=== PATIENT | female | born 1950 | race Caucasian/White ===

== ENCOUNTER 2018-01-02 05:30 | Day surgery (SDC) | payer MEDICARE, BC ==
[2018-01-02] MEDS ORDERED: Enalapril 5 MG Tab PO ONE (05:57)
[2018-01-02] MEDS ORDERED: Acetaminophen 500 MG Tab PO ONE (05:58)
[2018-01-02] MEDS ORDERED: Dextrose 5%-Lactated Ringers 1,000 ML IV SCH (06:00)
[2018-01-02] MEDS ORDERED: Lidocaine 1% with EPINEPHrine 1:100,000 50 ML MDV ONE (06:53)
[2018-01-02] MEDS ORDERED: Midazolam 1 MG/ML 2 ML SDV ONE (06:54)
[2018-01-02] MEDS ORDERED: fentaNYL 100 MCG/2 ML SDV ONE (06:54)
[2018-01-02] MEDS ORDERED: Propofol 200 MG/20 ML SDV ONE (06:54)
[2018-01-02] MEDS ORDERED: Lidocaine 0.5% 50 ML SDV ONE (06:55)
[2018-01-02] MEDS ORDERED: ceFAZolin 2 GM in Sodium Chloride 0.9% 50 ML IV ONE (07:30)
[2018-01-02] MEDS ORDERED: Ketorolac 60 MG/2 ML SDV ONE (08:41)
[2018-01-02 09:23] VITALS: BP 112/71
--- NOTE | 2018-01-09 07:19 | OR ---
DATE OF PROCEDURE: 01/02/2018 PREOPERATIVE DIAGNOSIS: Right carpal tunnel syndrome. POSTOPERATIVE DIAGNOSIS: Right carpal tunnel syndrome. PROCEDURE: Right carpal tunnel release ([id number]). ANESTHESIA: IV block plus sedation. INDICATION FOR PROCEDURE: This is a 67-year-old female who is presenting with bilateral carpal tunnel syndrome, worse on the right, and the plan is to proceed with a right carpal tunnel release. Potential risks including bleeding, infection, injury to median nerve and/or its branches, possible incomplete relief of symptoms were all reviewed, and the patient wishes to proceed. DETAILS OF PROCEDURE: The patient was taken to the operating room and placed in a supine position. IV sedation was administered, after which an IV block was placed affecting the right forearm and hand. Those areas were then prepped and draped. A standard carpal tunnel incision was made and carried down through the skin and subcutaneous tissue. The transverse carpal ligament was then divided from the area of the wrist proximally onto the palm of the hand and then somewhat proximal to the wrist, to provide complete decompression of the median nerve in that region. The nerve otherwise was intact. An ulnar orientation with the underlying median nerve was maintained during the course of revision of transverse carpal ligament, which was quite thick and did retract under considerable tension. At that point, no further problems noted. The subcutaneous tissue was approximated with some 4-0 Vicryl stitch and the skin with a 5-0 Prolene stitch. Dressing was applied. The patient was taken to the recovery room in satisfactory condition. Jostin Castrejon MD /[id number]
== END 2018-01-02 09:37 | disposition home or self-care (01) ==
LOC: JP.SDS 05:30
PROVIDERS: ATTEND Surgery
DX: G56.03 Carpal tunnel syndrome, bilateral upper limbs (principal); I10 Essential (primary) hypertension; E78.5 Hyperlipidemia, unspecified; F41.9 Anxiety disorder, unspecified; Z88.8 Allergy status to other drugs, medicaments and biological substances
CPT/HCPCS: 64721; A9270; J0690; J1885; J2250; J2704; J3010; J7042; J7050

== ENCOUNTER 2020-10-15 20:49 | Emergency (ER) | payer MEDICARE, BC ==
[2020-10-15 20:53] VITALS: BP 127/80; PULSE 71
--- NOTE | 2020-10-15 21:47 | EDM.PDOC ---
ED HPI GENERAL MEDICAL PROBLEM - General Chief Complaint: Head Injury Stated Complaint: MEDICAL VIA [facility] Time Seen by Provider: 10/15/20 21:35 Source of Information: Reports: Patient, EMS, Family () History Limitations: Reports: Intoxication - History of Present Illness INITIAL COMMENTS - FREE TEXT/NARRATIVE: Dinah is a 70-year-old female presenting to the ED via [facility] for evaluation of head injury while intoxicated. The patient reportedly has not been making much sense according to her since earlier today after she mowed the lawn. Apparently during this event, and the one more broke down in that warren and into the garage. He states that she was not making a lot of sense with talking. She is normally a morning person and she ate a [place] this morning and had 4 cups of coffee. After that she started to mow the lawn. Later in the afternoon they were entertaining friends and she drank 4 vodka and water drinks. He said that she has steadily declined her mentation since then and at times acts confused and is repeating herself. She went to lay down and after being in bed for about 30 minutes he heard a thud to go in and find her laying on the floor. They asked for the help of a neighbor who is a mission support specialist to assist them getting her off the floor and he recommended that she be brought in for evaluation. She denies any symptoms including headache, neck pain or back pain. She is intoxicated but denies any heavy alcohol use. According to the there was nothing unusual about their intake today and her confusion seemed to start before she started drinking this morning. She denies any fever, chills, nausea or vomiting, headache or body aches, abdominal or back pain. - Related Data Allergies Allergy/AdvReac Type Severity Reaction Status Date / Time ezetimibe [From Vytorin] AdvReac Leg Cramps Verified 10/15/20 21:10 simvastatin [From Vytorin] AdvReac Leg Cramps Verified 10/15/20 21:10 Home Meds: Home Meds Aspirin [Low Dose Aspirin EC] 81 mg PO DAILY 05/21/14 [History] Citalopram Hydrobromide [Celexa] 10 mg PO DAILY 05/21/14 [History] Enalapril Maleate [Vasotec] 20 mg PO DAILY 12/31/14 [History] atorvaSTATin [Lipitor] 40 mg PO BEDTIME 05/21/14 [History] Past Medical History HEENT History: Reports: Impaired Vision Cardiovascular History: Reports: Heart Murmur, High Cholesterol, Hypertension Gastrointestinal History: Reports: GERD, Hiatal Hernia RESIDENT CARE DIRECTOR History: Reports: Other RESIDENT CARE DIRECTOR History: [place] Neurological History: Reports: Concussion Psychiatric History: Reports: Anxiety, Depression, Panic Attack Endocrine/Metabolic History: Reports: Obesity/BMI 30+ - Infectious Disease History Infectious Disease History: Reports: Measles, Novel Coronavirus - Past Surgical History HEENT Surgical History: Reports: Tonsillectomy Cardiovascular Surgical History: Reports: None GI Surgical History: Reports: Appendectomy, Colonoscopy, EGD, Justin Fundoplication Female Surgical History: Reports: Tubal Ligation Endocrine Surgical History: Reports: None Musculoskeletal Surgical History: Reports: Carpal Tunnel Social & Family History - Tobacco Use Tobacco Use Status *Q: Never Tobacco User - Caffeine Use Caffeine Use: Reports: Coffee Caffeine Use Comment: 2-3 cups daily - Alcohol Use Date of Last Drink: 10/15/20 ED ROS GENERAL - Review of Systems Review Of Systems: See Below Constitutional: Reports: No Symptoms HEENT: Reports: No Symptoms Respiratory: Reports: No Symptoms Cardiovascular: Reports: No Symptoms Endocrine: Reports: No Symptoms GI/Abdominal: Reports: No Symptoms : Reports: No Symptoms Musculoskeletal: Reports: No Symptoms Skin: Reports: No Symptoms Neurological: Reports: Confusion Psychiatric: Reports: No Symptoms Hematologic/Lymphatic: Reports: No Symptoms Immunologic: Reports: No Symptoms ED EXAM, HEAD INJURY - Physical Exam Exam: See Below Exam Limited By: Intoxication General Appearance: Alert, No Apparent Distress, Anxious Head: Normocephalic. No: Scalp Swelling, Scalp Abrasions, Scalp Hematoma, Facial Ecchymosis, Facial Swelling, Facial Tenderness Nexus Criteria: Evidence of Intoxication, Altered Level of Consciousness Eyes: Bilateral Eye: EOMI, PERRL Nose: Normal Inspection, Normal Mucousa Throat/Mouth: Normal Inspection, Normal Lips, Normal Teeth, Normal Oropharynx, Normal Voice, No Airway Compromise Neck: Non-Tender, Full Range of Motion Respiratory: No Respiratory Distress, Lungs Clear, Normal Breath Sounds Cardiovascular: Normal Peripheral Pulses, Regular Rate, Rhythm, No Murmur GI/Abdominal Exam: Normal Bowel Sounds, Soft, Non-Tender Back Exam: Normal Inspection Extremities: Normal Inspection, Normal Range of Motion Neurologic: silo filler II-XII nml As Tested, No Motor/Sensory Deficits, Alert, Normal Mood/Affect, Oriented x 3, Other (She does appear to have some mild perseveration and confusion but is oriented x3) Skin: Normal Color, Warm/Dry - [place] Coma Score Best Eye Response (Rosette): (4) Open Spontaneously Best Verbal Response ([place]): (4) Confused Conversation Best Motor Response ([place]): (6) Obeys Commands [place] Total: 14 Course - Vital Signs Last Recorded V/S: Last Vital Signs Temp 36.6 C 10/15/20 21:14 Pulse 71 10/15/20 21:14 Resp 16 10/15/20 21:14 BP 127/80 10/15/20 21:14 Pulse Ox 95 10/15/20 21:14 - Orders/Labs/Meds Orders: Active Orders 24 hr Category Date Time Status UA W/MICROSCOPIC [URIN] Stat Lab 10/15/20 21:42 Received Labs: Laboratory Tests 10/15/20 10/15/20 10/15/20 Range/Units 21:13 21:13 21:13 WBC 7.9 (4.5-11.0) K/uL RBC 4.65 (3.30-5.50) M/uL Hgb 14.1 (12.0-15.0) g/dL Hct 42.2 (36.0-48.0) % MCV 91 (80-98) fL MCH 30 (27-31) pg MCHC 33 (32-36) % Plt Count 243 (150-400) K/uL Neut % (Auto) 61.1 (36-66) % Lymph % (Auto) 29.5 (24-44) % Miller % (Auto) 7.1 H (2-6) % Eos % (Auto) 1.3 L (2-4) % Baso % (Auto) 1.0 (0-1) % PT 10.0 (9.5-12.0) sec INR 0.92 (0.80-1.20) APTT 23.9 L (27.0-36.0) sec Sodium 140 (140-148) mmol/L Potassium 3.6 (3.6-5.2) mmol/L Chloride 102 (100-108) mmol/L Carbon Dioxide 27 (21-32) mmol/L Anion Gap 11.3 (5.0-14.0) mmol/L BUN 16 (7-18) mg/dL Creatinine 0.7 (0.6-1.0) mg/dL Est Cr Clr Drug Dosing 72.01 mL/min Estimated GFR (MDRD) > 60 (>60) Glucose 125 H (74-106) mg/dL Calcium 8.7 (8.5-10.1) mg/dL Total Bilirubin 0.3 (0.2-1.0) mg/dL AST 24 (15-37) U/L ALT 35 (12-78) U/L Alkaline Phosphatase 120 H (46-116) U/L Total Protein 7.2 (6.4-8.2) g/dL Albumin 3.8 (3.4-5.0) g/dL Globulin 3.4 (2.3-3.5) g/dL Albumin/Globulin Ratio 1.1 L (1.2-2.2) Ethyl Alcohol mg/dL 10/15/20 Range/Units 21:13 WBC (4.5-11.0) K/uL RBC (3.30-5.50) M/uL Hgb (12.0-15.0) g/dL Hct (36.0-48.0) % MCV (80-98) fL MCH (27-31) pg MCHC (32-36) % Plt Count (150-400) K/uL Neut % (Auto) (36-66) % Lymph % (Auto) (24-44) % Miller % (Auto) (2-6) % Eos % (Auto) (2-4) % Baso % (Auto) (0-1) % PT (9.5-12.0) sec INR (0.80-1.20) APTT (27.0-36.0) sec Sodium (140-148) mmol/L Potassium (3.6-5.2) mmol/L Chloride (100-108) mmol/L Carbon Dioxide (21-32) mmol/L Anion Gap (5.0-14.0) mmol/L BUN (7-18) mg/dL Creatinine (0.6-1.0) mg/dL Est Cr Clr Drug Dosing mL/min Estimated GFR (MDRD) (>60) Glucose (74-106) mg/dL Calcium (8.5-10.1) mg/dL Total Bilirubin (0.2-1.0) mg/dL AST (15-37) U/L ALT (12-78) U/L Alkaline Phosphatase (46-116) U/L Total Protein (6.4-8.2) g/dL Albumin (3.4-5.0) g/dL Globulin (2.3-3.5) g/dL Albumin/Globulin Ratio (1.2-2.2) Ethyl Alcohol 288 mg/dL - Radiology Interpretation Free Text/Narrative:: I reviewed the report on the CT of the head as well as reviewed the images myself. There is no evidence for any acute intracranial abnormalities including hemorrhage, mass, or midline shift. There is no evidence for trauma to the skull or scalp hematoma. There is no evidence for an acute stroke. - Re-Assessments/Exams Free Text/Narrative Re-Assessment/Exam: 10/15/20 22:20 I reviewed the patient's labs showing a leukocyte count of 7.9 with a hemoglobin of 14.1 and hematocrit of 42.2. Patient's platelet count is 243,000. Her comprehensive metabolic panel was unremarkable with a sodium of 140, potassium 3.6, chloride of 102, bicarbonate of 27, BUN of 16 and a creatinine of 0.7 with a glucose of 125. Her PT and PTT are both normal. Her ethanol level is 288. Urinalysis shows no acute evidence for infection. CT of the brain shows no acute intracranial abnormalities including hemorrhage, mass, or midline shift. There is no evidence for an acute stroke. There is no evidence for any cranial abnormalities or hematoma formation on the scalp. It is likely that the confusion is simply due to intoxication. We will have the patient go home and rest and if still confused in the morning we can reassess if needed. Departure - Departure Time of Disposition: 22:22 Disposition: Home, Self-Care 01 Clinical Impression: Confusion, Fall from bed, initial encounter Alcohol intoxication Qualifiers: Complication of substance-induced condition: uncomplicated Qualified Code(s): F10.920 - Alcohol use, unspecified with intoxication, uncomplicated - Discharge Information Instructions: Alcohol Intoxication, [id number], Confusion Referrals: PCP,None [Primary Care Provider] - Forms: ED Department Discharge Care Plan Goals: Your work-up today has shown that the only significant abnormality was that you are intoxicated with a blood alcohol of 288 which is 0.288 or leg 4 times the legal limit. All your other lab work is unremarkable. Your CT scan of the brain did not show any significant abnormalities. There was no evidence for stroke. I recommend going home and sleeping and if you are still having confusion in the morning we would be happy to see you back and reassess but at this time I do not see any worrisome findings to contribute to your confusion. Sepsis Event Note (ED) - Evaluation Sepsis Screening Result: No Definite Risk - Focused Exam Vital Signs: Vital Signs Temp Pulse Resp BP Pulse Ox 10/15/20 21:14 36.6 C 71 16 127/80 95 10/15/20 20:52 36.6 C 71 16 127/80 95 - Problem List & Annotations (1) Alcohol intoxication SNOMED Code(s): 49605940 Code(s): F10.929 - ALCOHOL USE, UNSPECIFIED WITH INTOXICATION, UNSPECIFIED Status: Acute Priority: High Current Visit: Yes Qualifiers: Complication of substance-induced condition: uncomplicated Qualified Code(s): F10.920 - Alcohol use, unspecified with intoxication, uncomplicated (2) Confusion SNOMED Code(s): 429395514 Code(s): R41.0 - DISORIENTATION, UNSPECIFIED Status: Acute Priority: High Current Visit: Yes (3) Fall from bed, initial encounter SNOMED Code(s): 20568731 Code(s): W06.XXXA - FALL FROM BED, INITIAL ENCOUNTER Status: Acute Priority: High Current Visit: Yes - Problem List Review Problem List Initiated/Reviewed/Updated: Yes - My Orders Last 24 Hours: My Active Orders 10/15/20 21:42 UA W/MICROSCOPIC [URIN] Stat - Assessment/Plan Last 24 Hours: My Active Orders 10/15/20 21:42 UA W/MICROSCOPIC [URIN] Stat
--- NOTE | 2020-10-15 21:57 | CRLCT ---
INDICATION: Intoxicated. Head injury. Pain. COMPARISON: None available. TECHNIQUE: CT examination of the head was performed with 2 and 3 mm thick axial and 2 millimeter thick sagittal and coronal sections without intravenous contrast. Images were obtained from the vertex of the skull through the skull base, and I examined the images with the brain and bone windows. Please note that all CT scans at this facility use dose modulation, iterative reconstruction, and/or weight-based dosing when appropriate to reduce radiation dose to as low as reasonably achievable. FINDINGS: : The brain is normal in appearance for the patient`s age on today`s study, with no sign of mass lesion, mass effect, hemorrhage, or edema. The ventricles and sulci are normal in appearance for the patient`s age. The visualized portions of the orbits are normal in appearance. The visualized portions of the paranasal sinuses and mastoids are clear. The osseous structures are normal in their appearance with no sign of abnormality in the skull base or calvarium. IMPRESSION: No sign of closed-head injury. Normal noncontrast CT of the head for the patient`s age. Please note that all CT scans at this facility use dose modulation, iterative reconstruction, and/or weight-based dosing when appropriate to reduce radiation dose to as low as reasonably achievable. Dictated by Gustavo Mcmahon MD @ 10/15/2020 9:54:[address] Gustavo Mcmahon @ Oct 15 2020 9:54PM
== END 2020-10-15 22:37 | disposition home or self-care (01) ==
LOC: JP.ED 20:49
DX: R41.0 Disorientation, unspecified (principal); F10.129 Alcohol abuse with intoxication, unspecified; E78.00 Pure hypercholesterolemia, unspecified; I10 Essential (primary) hypertension; E66.9 Obesity, unspecified; Y90.8 Blood alcohol level of 240 mg/100 ml or more; Z86.16 Personal history of COVID-19; Z88.8 Allergy status to other drugs, medicaments and biological substances; Z68.34 Body mass index [BMI] 34.0-34.9, adult
CPT/HCPCS: 36415; 70450; 80053; 80307; 81001; 85025; 85610; 85730; 99284-25

== ENCOUNTER 2021-05-03 07:15 | Day surgery (SDC) | payer MEDICARE, BC ==
[2021-05-03] MEDS ORDERED: fentaNYL 100 MCG/2 ML SDV ONE (07:24)
[2021-05-03] MEDS ORDERED: Propofol 200 MG/20 ML SDV ONE (07:24)
[2021-05-03] MEDS ORDERED: Midazolam 1 MG/ML 2 ML SDV ONE (07:25)
[2021-05-03] MEDS ORDERED: Sodium Chloride 0.9% 1,000 ML IV SCH (08:00)
--- NOTE | 2021-05-03 09:57 | OR ---
DATE OF PROCEDURE: 05/03/2021 SURGEON: Dominik Gonzalez MD PROCEDURE: Colonoscopy. FINDINGS: Normal colonoscopy. COMPLICATIONS: None. MANAGER MEDICARE MARKETING: None. ANESTHESIA: MAC. PREOPERATIVE DIAGNOSIS: Screening colonoscopy. POSTOPERATIVE DIAGNOSIS: Screening colonoscopy. RISKS: Risks, benefits, alternatives, and limitations including, but not limited to infection, bleeding, perforation, false positives and false negatives were explained to the patient and she wished to proceed. PROCEDURE IN DETAIL: The patient was placed in left lateral decubitus position. Digital exam was performed without abnormality. The scope was introduced and advanced atraumatically to ileocecal valve. A photo was taken. The scope was brought back to the ascending, transverse, descending colon, and retroflexed. No evidence of old or new blood. No masses. No polyps. No diverticulosis. Greater than 8 minutes was spent removing the scope. Prep was acceptable, approximately 90% of luminal surface could be seen. Recommend repeat colonoscopy in 10 years unless she develops a family history. Dominik Gonzalez MD /[id number]
[2021-05-03 10:24] VITALS: BP 114/68; PULSE 71
== END 2021-05-03 10:38 | disposition home or self-care (01) ==
LOC: JP.SDS 07:15
PROVIDERS: ATTEND Surgery
DX: Z12.11 Encounter for screening for malignant neoplasm of colon (principal); Z88.8 Allergy status to other drugs, medicaments and biological substances; I10 Essential (primary) hypertension; K21.9 Gastro-esophageal reflux disease without esophagitis; E66.9 Obesity, unspecified; Z68.33 Body mass index [BMI] 33.0-33.9, adult
CPT/HCPCS: G0121; J2250; J2704; J3010; J7030